=== PATIENT | female | born 1955 ===

== ENCOUNTER 2018-01-29 12:27 | Emergency (ER) | payer MEDICAID ==
[2018-01-29 12:27] VITALS: BMI 20.4
[2018-01-29 12:58] VITALS: BP 156/77; PULSE 74; RESP 18; TEMP 98; O2SAT 99
[2018-01-29] MEDS ORDERED: Naproxen 500 MG TAB PO STA (13:25)
--- NOTE | 2018-01-29 13:26 | ED PDOC ---
Lower Extremity Pain/Injury Time Seen by Provider: 01/29/18 13:15 Chief Complaint (Nursing): Lower Extremity Problem/Injury Chief Complaint (Provider): Left heel pain x 4 days History Per: Patient History/Exam Limitations: no limitations Onset/Duration Of Symptoms: Days Current Symptoms Are (Timing): Still Present Additional Complaint(s): Pt states a fel days ago she began having pain in the left heel, sharp when she steps on it. Pt states she had no injury. Denies similar in the past. Posterior heel pain, localized. PT taking tylenol at home but it is not helping. Past Medical History Reviewed: Historical Data, Nursing Documentation, Vital Signs Vital Signs: Last Vital Signs Temp 98.0 F 01/29/18 12:56 Pulse 74 01/29/18 12:56 Resp 18 01/29/18 12:56 BP 156/77 H 01/29/18 12:56 Pulse Ox 99 01/29/18 12:56 - Medical History PMH: HIV, HTN Denies: Chronic Kidney Disease - Surgical History Surgical History: Cholecystectomy - Family History Family History: States: [place] (mother and father of [place]'s per pt), CAD - Living Arrangements Living Arrangements: With Family - Social History Current smoker - smoking cessation education provided: No - Home Medications Home Medications: Ambulatory Orders Medication Instructions Recorded Darunavir Ethanolate [Prezista] 600 mg PO DAILY 11/19/16 Emtricitabine/Tenofovir Diso 1 tab PO DAILY 11/19/16 [Truvada 200 MG-300 MG] ALPRAZolam [Xanax] 0.25 mg PO Q8 PRN #10 tab 11/20/16 - Allergies Allergies/Adverse Reactions: Allergies Allergy/AdvReac Type Severity Reaction Status Date / Time No Known Allergies Allergy Verified 02/20/15 19:19 Review of Systems ROS Statement: Except As Marked, All Systems Reviewed And Found Negative Constitutional: Negative for: Fever, Chills Cardiovascular: Negative for: Chest Pain, Palpitations Musculoskeletal: Positive for: Foot Pain (LEFt) Skin: Negative for: Rash, Bruising Physical Exam - Reviewed Nursing Documentation Reviewed: Yes Vital Signs Reviewed: Yes - Physical Exam Appears: Positive for: Well, Non-toxic, No Acute Distress Head Exam: Positive for: ATRAUMATIC, NORMAL INSPECTION, NORMOCEPHALIC Skin: Positive for: Normal Color (No erythema, no ecchymosis ), Warm Eye Exam: Positive for: Normal appearance ENT: Positive for: Normal ENT Inspection Respiratory: Negative for: Accessory Muscle Use, Respiratory Distress Pulses-Dorsalis Pedis (L): 2+ Pulses-Dorsalis Pedis (R): 2+ Pulses-Post. Tibialis (L): 2+ Pulses-Post. Tibialis (R): 2+ Back: Positive for: Normal Inspection Extremity: Positive for: Normal ROM, Tenderness (Left media and lateral calcaneus) Neurologic/Psych: Positive for: Alert, Oriented - ECG O2 Sat by Pulse Oximetry: 99 Medical Decision Making Medical Decision Making: Heel x-ray normal. Disposition - Clinical Impression Clinical Impression: Heel pain - Patient ED Disposition Is Patient to be Admitted: No Counseled Patient/Family Regarding: Diagnosis, Need For Followup - Disposition Referrals: Podiatry Clinic [Outside] Disposition: Routine/Home Disposition Time: 14:03 Condition: GOOD Instructions: Muscle and Bone Pain (DC) Forms: [employer] ([place])
[2018-01-29] MEDS ORDERED: Naproxen 500 MG TAB PO ONE (13:35)
--- NOTE | 2018-01-29 14:47 | RAD ---
PROCEDURE: Radiographs of the left calcaneus/hindfoot. HISTORY: left heel pain x 4 days COMPARISON: None available. TECHNIQUE: Frontal and lateral radiographs of the calcaneus. FINDINGS: No fracture or joint dislocation. No focal lesion. No calcaneal spur. IMPRESSION: Unremarkable radiographs of the left calcaneus /hindfoot.
== END 2018-01-29 14:28 | disposition home or self-care (01) ==
LOC: H.ER 12:27
DX: M79.672 Pain in left foot (principal)